=== PATIENT | male | born 1970 | race Caucasian/White ===

== ENCOUNTER 2016-12-01 09:34 | Emergency (ER) | payer BC ==
[~2016-12-01] VITALS: Ht 182.9 cm; Wt 130.0 kg
[~2016-12-01 09:34] MED LIST: OXYC-57 PO
[2016-12-01 09:36] VITALS: TEMP 36.9; Ht 182.9 cm; Wt 130.0 kg
--- NOTE | 2016-12-01 10:09 | EMERGENCY ROOM VISIT NOTE ---
History Report prepared by Cynthia: Lily Hernandez Under the Supervision of: Dr. Symone De Los Santos M.D. First contact with patient: 09:55 Chief Complaint: KNEEPAIN Stated Complaint: SEVERE LEFT KNEE PAIN History of Present Illness The patient is a 46 year old male who presents to the Emergency Room with complaints of worsening left knee pain that began yesterday morning. The pain is worse when he tries to straighten his knee. He notes that he was playing with his dogs 2 days ago and one of his dogs ran into his left knee and his other dog came in the other direction at his shoulders. He is unsure if he twisted his knee at that time. The next morning, he woke up with the pain. 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 Source of History: patient Onset: yesterday morning Position: knee (left) Timing: worsening Modifying Factors (Worsening): other (straightening knee) Review of Systems See HPI for pertinent positives & negatives. A total of 6 systems reviewed and were otherwise negative. Past Medical & Surgical Medical Problems: (1) Abscess (2) Acute calculous cholecystitis (3) Bronchitis (4) Cellulitis Surgical Problems: (1) H/O hernia repair Family History FH: HTN (hypertension) FH: cancer FH: gallbladder disease FH: kidney disease FH: seizures Social History Smoking Status: Current Every Day Smoker Alcohol Use: occasionally Drug Use: none Marital Status: Housing Status: lives with family Occupation Status: employed Current/Historical Medications Scheduled PRN Hydrocodone/Acetaminophen 5MG/325MG (Adams 5MG/325MG), 1 TABLET PO Q6 PRN for Pain Allergies Coded Allergies: BEE STING (Verified Allergy, Severe, ANAPHYLAXIS, 12/01/16) Physical Exam Vital Signs Date Time Temp Pulse Resp B/P Pulse Ox O2 Delivery O2 Flow Rate FiO2 12/01/16 11:25 96 18 150/91 96 Room Air 12/01/16 09:36 36.9 104 18 129/95 97 Room Air Physical Exam Vital signs reviewed. General: Well-appearing 46 year old male, in no significant distress, obese. Musculoskeletal: Tenderness along the medial aspect of the left knee no difficulty with leg straightening, positive discomfort with flexion, tender along the medial joint line. Neurologic: Patient awake alert and oriented x 3, full strength in all 4 extremities. Cranial nerves 2 through 12 grossly intact. Skin: Warm, dry, no rash Medical Decision & Procedures ER Provider Diagnostic Interpretation: Radiology results as stated below per my review and radiologist interpretation: LEFT KNEE 1 OR 2 VIEWS ROUTINE CLINICAL HISTORY: Left knee pain COMPARISON: None. DISCUSSION: Minimal degenerative change patellofemoral and medial joint compartments. There is no evidence for soft tissue swelling. No acute bony abnormality IMPRESSION: No acute process. Electronically signed by: Venkat Rowan M.D. 12/01/2016 10:47 AM Dictated Date/Time: 12/01/2016 10:46 AM Medications Administered Medications (Trade) Dose Ordered Sig/Casey Route Start Time Stop Time Status Last Admin Dose Admin Acetaminophen/ Hydrocodone Bitart (Adams 7.5/325 Tab) 1 tab NOW STAT PO 12/01/16 10:11 12/01/16 10:12 DC 12/01/16 10:18 1 TAB ED Course 1002: The patient was evaluated in room C5. A complete history and physical examination was performed. 1011: Ordered Adams 7.5/325 1 tab PO. 1120: Upon reevaluation, the patient appeared to have improvement of his symptoms. I discussed findings with the patient. He verbalized agreement of the treatment plan. The patient was discharged home. Medical Decision Differential diagnosis: Etiologies such as fracture, dislocation, neurovascular compromise, compartment syndrome, soft tissue injury, as well as others were entertained. This patient was evaluated and appeared to be in some discomfort. Physical examination is fairly unrevealing. X-rays are negative for acute bony abnormality or significant effusion. Patient was placed in a knee immobilizer. He will ice and elevate as much as possible. He will follow-up with orthopedic surgery as needed. He will return to the ER for worsening of symptoms or any medical concerns. Impression Primary Impression: Sprain of knee Scribe Attestation The scribe's documentation has been prepared under my direction and personally reviewed by me in its entirety. I confirm that the note above accurately reflects all work, treatment, procedures, and medical decision making performed by me. Departure Information Dispostion Home / Self-Care Prescriptions Hydrocodone/Acetaminophen 5MG/325MG (Adams 5MG/325MG) Tab 1 TABLET PO Q6 Y for Pain, #14 TAB Prov: Symone De Los Santos M.D. 12/01/16 Referrals Alejandra Reid M.D. (PCP) Patient Instructions My [facility] Additional Instructions Diagnosis: Left knee sprain Ibuprofen 600 mg every 6 hours as needed for pain with food. Adams one to 2 tabs every 6 hours as needed for pain. Do not drive or take Tylenol with this medication. Knee immobilizer while weightbearing. Ice and elevate the knee when possible. Follow-up with orthopedic surgery this week for reevaluation. Return to the ER for worsening of symptoms or any medical concerns. Problem Qualifiers Primary Impression: Sprain of knee Encounter type: initial encounter Involved ligament of knee: medial collateral ligament Laterality: left Qualified Codes: S83.412A - Sprain of medial collateral ligament of left knee, initial encounter
[2016-12-01] MEDS ORDERED: HYDROCODONE/ACETAMINOPHEN 7.5/325MG TAB PO STA (10:11)
--- NOTE | 2016-12-01 10:48 | DIAGNOSTIC IMAGING REPORT ---
LEFT KNEE 1 OR 2 VIEWS ROUTINE CLINICAL HISTORY: Left knee pain COMPARISON: None. DISCUSSION: Minimal degenerative change patellofemoral and medial joint compartments. There is no evidence for soft tissue swelling. No acute bony abnormality IMPRESSION: No acute process. Electronically signed by: Venkat Rowan M.D. 12/01/2016 10:47 AM Dictated Date/Time: 12/01/2016 10:46 AM
[2016-12-01 11:25] VITALS: BP 150/91; PULSE 96; O2SAT 96
[2016-12-01] MEDS ORDERED: HYDR-5688 PO (11:39)
[2017-05-04] MEDS ORDERED: CHN/1 PO (14:21)
== END 2016-12-01 11:45 | disposition home or self-care (01) ==
LOC: C.EDB 09:35 → C.EDC 11:45
DX: S83.412A Sprain of medial collateral ligament of left knee, initial encounter (principal); X50.1XXA Overexertion from prolonged static or awkward postures, initial encounter; Y92.019 Unspecified place in single-family (private) house as the place of occurrence of the external cause; F17.210 Nicotine dependence, cigarettes, uncomplicated

== ENCOUNTER 2017-05-18 11:00 | Day surgery (SDC) | payer BC ==
[2017-05-04 14:11] VITALS: Ht 182.9 cm; Wt 144.3 kg
--- NOTE | 2017-05-04 14:38 | PAT Medication Instructions ---
Service Date May 04, 2017. Current Home Medication List Varenicline (Chantix), 1 TAB PO BID Medication Instructions For Your Scheduled Surgery - Hold the following medications the morning of surgery: Varenicline (Chantix), 1 TAB PO BID - Take the following medications as scheduled the night before surgery: Varenicline (Chantix), 1 TAB PO BID If you have any questions please call us at [phone] or [phone] or [phone]
[~2017-05-18] VITALS: Ht 182.9 cm; Wt 144.3 kg
[~2017-05-18 11:00] MED LIST changes: +CEFAZOLIN 3000 MG/65 ML D5W IV SCH; +CHN/1 PO; +LACTATED RINGER'S 1000ML 1,000 ML IV SCH; -OXYC-57 PO; +SODIUM CHLORIDE 0.9% 1000ML 1,000 ML IV SCH
[2017-05-18 11:27] VITALS: BP 130/85; PULSE 85; TEMP 37; O2SAT 97
[2017-05-18] MEDS ORDERED: ATROPINE SULFATE 0.1 MG/ML 5ML SYR IV PRN (11:45)
[2017-05-18] MEDS ORDERED: FLUMAZENIL 0.1 MG/1 ML 10 ML VIAL IV PRN (11:45)
[2017-05-18] MEDS ORDERED: EpHEDrine SULFATE INJ 50 MG/ML AMP IV PRN (11:45)
[2017-05-18] MEDS ORDERED: FENTANYL CITRATE INJ 50 MCG/1 ML 2 ML VIAL IV PRN (11:45)
[2017-05-18] MEDS ORDERED: ONDANSETRON INJ 2 MG/ML 2 ML VIAL IV PRN ×2 (11:45→17:15)
[2017-05-18] MEDS ORDERED: HYDROmorphone INJ 2 MG/ML SYR/VIAL IV PRN (11:45)
[2017-05-18] MEDS ORDERED: NALOXONE HCL 0.4 MG/1 ML VIAL/CARP IV PRN (11:45)
[2017-05-18] MEDS ORDERED: MEPERIDINE HCL 25 MG/ML CARP IV PRN (11:45)
[2017-05-18] MEDS ORDERED: LABETALOL HCL IV 5 MG/ML 20ML IV PRN (11:45)
[2017-05-18] MEDS ORDERED: PHENYLEPHRINE 100MCG/ML 5ML SYR IV PRN (11:45)
[2017-05-18] MEDS ORDERED: MIDAZOLAM HCL 1 MG/ML 2ML VIAL ONE (12:01)
[2017-05-18] MEDS ORDERED: FENTANYL CITRATE INJ 50 MCG/1 ML 2 ML VIAL ONE ×4 (12:01→17:56)
--- NOTE | 2017-05-18 13:50 | History & Physical Bridge Note ---
H&P Re-Evaluation Bridge Note: I have examined the patient, reviewed the History & Physical and in the interval since the performance of the History & Physical I have noted the following changes of clinical significance: No changes noted
[2017-05-18] MEDS ORDERED: LARYING-O-JET KIT (LTA) ONE ×2 (14:37)
[2017-05-18] MEDS ORDERED: ONDANSETRON INJ 2 MG/ML 2 ML VIAL ONE (14:37)
[2017-05-18] MEDS ORDERED: ROCURONIUM BROMIDE 10 MG/ML 5 ML VIAL ONE ×3 (14:37→16:51)
[2017-05-18] MEDS ORDERED: PROPOFOL IV EMULSION 10 MG/ML 20 ML VIAL IV ONE ×2 (14:37→17:14)
[2017-05-18] MEDS ORDERED: DEXAMETHASONE SOD INJ 4 MG/ML VIAL ONE (14:37)
[2017-05-18] MEDS ORDERED: LIDOCAINE HCL 2% 2 ML VIAL (20MG/ML) ONE (14:37)
[2017-05-18] MEDS ORDERED: SUCCINYLCHOLINE CHLORIDE 20 MG/ML 10 ML VIAL IV ONE (14:37)
[2017-05-18] MEDS ORDERED: GLYCOPYRROLATE INJ 0.2 MG/ML VIAL ONE (14:38)
[2017-05-18] MEDS ORDERED: NEOSTIGMINE METHYLSULFATE 5 MG/5 ML SYR ONE (14:38)
[2017-05-18] MEDS ORDERED: KETOROLAC TROMETHAMINE 30 MG/ML VIAL ONE (14:43)
[2017-05-18] MEDS ORDERED: LIDOCAINE HCL 1% 20 ML VIAL ONE (17:09)
[2017-05-18] MEDS ORDERED: BUPIVACAINE 0.25% 30 ML VIAL ONE (17:10)
--- NOTE | 2017-05-18 17:10 | [facility] Post Operative Brief Note ---
Immediate Operative Summary Operative Date May 18, 2017. Pre-Operative Diagnosis Recurrent ventral and right inguinal hernia Post-Operative Diagnosis same plus direct inguinal hernia Procedure(s) Performed Repair recurrent ventral hernia and recurrent right direct inguinal hernia Surgeon Dr De Anda Computer Designer Surgeon(s) Suzan PEREZ Estimated Blood Loss 20 ml Findings See dictation Specimens B. Right inguinal hernia sac Drains None Anesthesia General Complication(s) None Disposition Recovery Room / PACU
[2017-05-18] MEDS ORDERED: SODIUM CHLORIDE 0.9% 1000ML 1,000 ML IV SCH (17:11)
--- NOTE | 2017-05-18 17:14 | Discharge Instructions ---
Discharge Instructions Date of Service May 18, 2017. Admission Reason for Admission: Recurrent Ventral Incisional & Right Inguinal Hernia Discharge Discharge Diagnosis / Problem: Same Discharge Goals Goal(s): Decrease discomfort Activity Recommendations Activity Limitations: per Instructions/Follow-up section Lifting Limitations: no more than 10 pounds (for 6 weeks) . Instructions / Follow-Up Instructions / Follow-Up ACTIVITY RECOMMENDATIONS: * Walk as much as possible. * No heavy lifting (>10 lbs.) for 2 weeks. SPECIAL CARE INSTRUCTIONS: * Ice to hernia repair site on and off until bedtime tonight. * May shower in 24 hours. Let water run over area and pat dry. * Leave steri strips on for one week. * Call the surgeon's office with any questions or concerns - (ex. temperature higher than 101 degrees F, excessive bleeding or pain). MEDICATIONS: Resume previous medications unless instructed otherwise by your surgeon. * Ibuprofen 600 mg every 6 hours with food * Percocet 1 every 4 hours, as needed for pain FOLLOW UP VISIT: If not already scheduled, please call the office to schedule a two week follow- up appointment. Office number Current Hospital Diet Patient's current hospital diet: Discharge Diet Recommended Diet: Regular Diet Procedures Procedures Performed: Repair recurrent ventral hernia and recurrent right direct inguinal hernia Pending Studies Studies pending at discharge: no Medical Emergencies . Who to Call and When: Medical Emergencies: If at any time you feel your situation is an emergency, please call 911 immediately. . Non-Emergent Contact Non-Emergency issues call your: Primary Care Provider, Surgeon Call Non-Emergent contact if: your pain is worsening, wound has increased redness, wound has increased pain . "Provider Documentation" section prepared by Venkat De Anda. . VTE Core Measure Inpt VTE Proph given/why not?: Treatment not indicated
[2017-05-18] MEDS ORDERED: MoRPHine SULFATE 4 MG/ML 1 ML CARP\\VIAL IV PRN (17:15)
[2017-05-18] MEDS ORDERED: OXYCODONE/ACETAMINOPHEN 5-325 TAB PO PRN (17:15)
--- NOTE | 2017-05-18 18:24 | Anesthesiology Progress Note ---
Anesthesia Post Op Note Date & Time May 18, 2017 at 18:24 Vital Signs Pain Intensity: 0 Vital Signs Past 12 Hours Date Time Temp Pulse Resp B/P (MAP) Pulse Ox O2 Delivery O2 Flow Rate FiO2 05/18/17 18:13 36.3 82 16 115/81 (97) 98 Nasal Cannula 2 05/18/17 18:11 133/88 05/18/17 18:09 75 12 98 05/18/17 18:09 75 12 05/18/17 18:06 130/88 05/18/17 18:04 71 9 100 05/18/17 18:04 71 9 05/18/17 18:01 126/95 05/18/17 17:59 73 12 97 05/18/17 17:59 74 12 05/18/17 17:58 74 12 05/18/17 17:58 74 12 97 05/18/17 17:56 151/80 05/18/17 17:53 75 13 96 05/18/17 17:53 76 13 05/18/17 17:51 131/95 05/18/17 17:48 75 13 05/18/17 17:48 75 13 97 05/18/17 17:46 144/81 05/18/17 17:43 77 14 05/18/17 17:43 78 14 95 05/18/17 17:41 146/96 05/18/17 17:39 146/97 05/18/17 17:38 76 15 95 05/18/17 17:38 76 15 05/18/17 17:38 36.0 78 16 146/97 (115) 97 Mask 10 05/18/17 11:27 37 85 18 130/85 (100) 97 Room Air Notes Mental Status: alert / awake / arousable, participated in evaluation Pt Amnestic to Procedure: Yes Nausea / Vomiting: adequately controlled Pain: adequately controlled Airway Patency, RR, SpO2: stable & adequate BP & HR: stable & adequate Hydration State: stable & adequate Anesthetic Complications: no major complications apparent
[2017-05-18 18:35] VITALS: BP 108/83; PULSE 85; TEMP 36.8; O2SAT 99
[2017-05-18 19:05] VITALS: BP 117/86; PULSE 81; O2SAT 97
[2017-05-18 19:35] VITALS: BP 138/92; PULSE 89; O2SAT 96
--- NOTE | 2017-05-18 19:38 | OPERATIVE REPORT ---
DATE OF OPERATION: 05/18/2017 PREOPERATIVE DIAGNOSES: Recurrent ventral hernia and recurrent right inguinal hernia. POSTOPERATIVE DIAGNOSES: Recurrent ventral hernia and recurrent direct right inguinal hernia. PROCEDURES: Repair of recurrent ventral hernia and repair of recurrent right direct inguinal hernia. SURGEON: Dr. Venkat De Anda. UNIFIED COMMUNICATIONS ARCHITECT: Suzan Patel PA-C FINDINGS: The patient had the ventral hernia repair previously. Mesh was used. This hernia defect measured approximately 2 cm and was located on the right side lateral to where the mesh had been placed. There were no incarcerated contents within the hernia sac that measured about 8 cm. The defect itself was again 2 cm. There were no incarcerated contents within this sac. Examination of the right inguinal area revealed a lot of scar tissue that made dissection difficult. There was a direct defect with a sac that was about the size of a small grapefruit. There was intra-abdominal fat within the sac, but there was no bowel there. The defect measured about 2 cm. It appeared as though the previously placed mesh had pulled free of the internal oblique on that medial side just above the pubic tubercle, which is where the defect was located. The cord structures were normal. TECHNIQUE: The patient was given a general anesthetic and the area was prepped and draped in the usual sterile fashion. The hernia has been previously marked. Incision was made through the scar from the ventral hernia that had been repaired. It was carried down through the subcutaneous tissue until the hernia sac could be identified. The hernia sac was then away from the overlying subcutaneous fat that allowing me to identify it along its course. It was then away from the surrounding subcutaneous fatty tissue. There was a lot of fibrotic tissue and scar tissue adherent to and these had to be taken down using blunt, sharp and cautery dissection where appropriate. I was able to identify the edge of the fascial defect, first superiorly and then working along that towards the medial side. I encountered the mesh underneath the fascia on the medial side. I then dissected the fascia off the previously placed mesh, creating a space in front of the mesh, but behind the fascia on that medial side. I then was able to work superiorly and inferiorly the hernia sac. The hernia sac was quite redundant. I then opened the hernia sac to confirm that there were no incarcerated contents. I dissected that opening down to about 3 cm above the fascia and I amputated the hernia sac and closed the peritoneal opening with a running 2-0 Vicryl. It was placed back in its anatomic position and the preperitoneal retrofascial space was created superiorly, inferiorly and laterally. Hemostasis was obtained using electrocautery. A piece of mesh was then placed in the retrofascial preperitoneal space, but then placed over the anterior surface of the previously placed mesh. It was cut to size on that side. It was secured to the fascia using 0 PDS interrupted horizontal mattress sutures. The fascial opening was closed with a running #1 PDS. The area was inspected for bleeding and none was seen. The deep subcutaneous tissue was closed with running 2-0 Vicryl, the superficial subcutaneous tissue was closed with running 3-0 Vicryl and the skin was closed with 4-0 Monocryl in a running subcuticular fashion. Skin was eventually anesthetized with 0.5% Marcaine. Attention was then turned to the right inguinal hernia. An incision was made through the scar from his previous hernia repair, carried down through generous subcutaneous tissue, where there was a lot of scarring and fibrosis. I had to dissect posteriorly through some of that scar tissue. It was very difficult to identify the external oblique fascia, but I was eventually able to identify the direct sac, which was going over the pubic tubercle. I then had to carefully and meticulously dissect that away from the surrounding tissue, which was very fibrotic. The planes were not easy to establish. I eventually was able to get down to where the hernia sac was protruding through the fascial defect, but that then allowed me to identify the external ring and I was able to establish a plane between the cord structures and the fascia and opened the fascia working superiorly up to the internal ring. At that point, it was clear that the mesh had pulled away from the medial side of the floor of the canal. The hernia sac was densely adherent to the undersurface of the fascia and I had to dissect it away from there in order to free it up on the lateral side down to the fascial level. Once that was accomplished, I opened the sac, placed the intraabdominal fat back into the peritoneal cavity and amputated the sac closing it with a running 2-0 Vicryl. That was placed back into its anatomic position. I was able to establish a plane between the peritoneum and the undersurface of the fascia around the entire circumference there. That then allowed me to free the cord structures away from the floor of the canal and identify the superior aspect of the mesh just below the internal ring. A mesh plug was then placed in the preperitoneal space through the fascial opening and I then was able to place the mesh that had dislodged over that opening and attached it to the internal oblique on the medial side. I then placed another piece of mesh and cut to size over the previously placed mesh and secured it to the internal oblique medially into the previously placed mesh reinforcing that. The cord structures were placed back into their anatomic position and the external oblique was closed over them using a running 2-0 Vicryl. The deep subcutaneous tissue was closed with running 2-0 Vicryl. The superficial subcutaneous tissue was closed with running 3-0 Vicryl and the skin was closed with 4-0 Monocryl in a running subcuticular fashion. The skin was anesthetized with 0.5% Marcaine. The skin was cleansed, dried, benzoin placed, and Steri-Strips applied to both incisions. The estimated blood loss was 20 mL. Sponge, needle and instrument counts were correct prior to closure. The patient tolerated surgical procedure without complication and was transferred to recovery. I attest to the content of the Intraoperative Record and any orders documented therein. Any exception s are noted below.
== END 2017-05-18 19:45 | disposition home or self-care (01) ==
LOC: C.ACU 11:00
PROVIDERS: ATTEND Surgery
DX: K43.9 Ventral hernia without obstruction or gangrene (principal); K40.91 Unilateral inguinal hernia, without obstruction or gangrene, recurrent; F17.210 Nicotine dependence, cigarettes, uncomplicated